=== PATIENT | male | born 1980 | race Caucasian/White ===

== ENCOUNTER → 2019-01-31 15:43 | Outpatient (CLI) | payer BC, SELFPAY ==
--- NOTE | 2019-01-31 15:52 | VDLE_ITS ---
Reason For Study: SWELLING Procedure LEFT Exam performed in department. CFV is compressible, spontaneous, phasic, A preliminary report was called and/or faxed competent, and demonstrates normal to Dr Toro. augmentation. FV is compressible, spontaneous, phasic, competent and demonstrates normal augmentation. POP V is compressible, spontaneous, phasic, competent and demonstrates normal augmentation. T/P Trunk is compressible. PTV is compressible. LT PerV is compressible. Left GSV is not visualized due to vein stripping. Interpretation Summary Deep veins of the left lower extremity are patent and compressible segmentally. There is no evidence of left lower extremity deep vein thrombosis. Valvular competence appears intact within the proximal deep venous system on the left . The left great saphenous vein appears to be absent due to prior stripping. Ordering Physician: Gerry Toro Referring Physician: MARELY BARRIOS Performed By: Milka Goodson, OANH, RVT
== END ==
PROVIDERS: Family Provider Family Medicine; PCP Family Medicine; Referring Provider Family Medicine; Visit Provider Family Medicine
DX: M79.89 Other specified soft tissue disorders (principal)
CPT/HCPCS: 93971